=== PATIENT | male | born 1965 | race Caucasian/White ===

== ENCOUNTER 2021-03-29 11:24 | Emergency (ER) | payer OTHER ==
[~2021-03-29] VITALS: Ht 177.8 cm; Wt 101.1 kg
--- NOTE | 2021-03-29 11:38 | PHYS DOC ---
Past History Past Medical History: Hypertension Adult General Chief Complaint Chief Complaint: PARTIAL AMPUTATION/AVULSION HPI HPI Patient is a 55-year-old male presenting for left big toe injury. Onset was just prior to arrival. Patient was starting up lawnmower when his left big toe was struck by the blade. There was complete destruction of the distal tip of toe, patient he was in shock applied immediate pressure and was transported urgently to our facility for evaluation. On arrival, patient complains of acute pain that is focal and nonradiating to left big toe area. Bleeding has been controlled with direct pressure. Tetanus is not up-to-date. Has history of hypertension for which she is on medication daily, no blood thinners. Reports having intact motor or sensory neuro function of left lower extremity. Review of Systems Review of Systems Fourteen body systems of review of systems have been reviewed. See HPI for pertinent positives and negative responses, other sainz all other systems are negative, non-pertinent or non-contributory Current Medications Current Medications Current Medications Medications (Trade) Dose Ordered Sig/Donato Start Time Stop Time Status Last Admin Dose Admin Cefazolin Sodium 2 gm/Dextrose 50 ml @ 100 mls/hr 1X ONCE 03/29/21 11:45 03/29/21 12:14 UNV Hydromorphone HCl (Dilaudid) 1 mg 1X ONCE 03/29/21 11:45 03/29/21 11:46 UNV Allergies Allergies Allergies Coded Allergies Type Severity Reaction Last Updated Verified Penicillins Allergy Unknown 03/29/21 Yes Physical Exam Physical Exam Constitutional: Well-developed age-appropriate male presenting in acute distress due to pain and obvious left lower extremity deformity HENT: Normocephalic, atraumatic, bilateral external ears normal, oropharynx moist, no oral exudates, nose normal. Eyes: PERRLA, EOMI, conjunctiva normal, no discharge. Neck: Normal range of motion, no tenderness, supple, no stridor. Cardiovascular: Heart rate regular, sinus rhythm, no murmurs rubs or gallops Lungs & Thorax: Bilateral breath sounds clear to auscultation Abdomen: Bowel sounds normal, soft, no tenderness, no masses, no pulsatile masses. Nonsurgical abdomen, no peritoneal signs Skin: Warm, dry, no erythema, no rash. Back: No tenderness, no CVA tenderness. Extremities: No clubbing or edema, there is obvious visible and palpable deformity with absent left big toe consistent with recent amputation from lawnmower blade. Patient has adjacent small 7 mm laceration present on left second digit medial surface, able to freely wiggle toes and foot without issues, compartments of left lower extremity soft, no other noteworthy abnormalities on physical exam Neurologic: Alert and oriented X 3, normal motor & sensory function, no focal d eficits noted. 2+ TP and DP pulses of left lower extremity, cap refill less than 5 seconds and second digit otherwise all remaining digits refill less than 3 seconds Psychologic: Anxious affect and mood Current Patient Data Vital Signs Vital Signs Date Time Temp Pulse Resp B/P (MAP) Pulse Ox O2 Delivery O2 Flow Rate FiO2 03/29/21 11:49 99.0 98 20 201/104 (136) 98 Room Air Vital Signs Date Time Temp Pulse Resp B/P (MAP) Pulse Ox O2 Delivery O2 Flow Rate FiO2 03/29/21 12:23 16 03/29/21 12:22 77 188/124 (145) 98 Room Air 03/29/21 11:49 99.0 Lab Results Laboratory Tests Test 03/29/21 11:44 White Blood Count 6.4 x10^3/uL Red Blood Count 4.88 x10^6/uL Hemoglobin 15.2 g/dL Hematocrit 44.6 % Mean Corpuscular Volume 91 fL Mean Corpuscular Hemoglobin 31 pg Mean Corpuscular Hemoglobin Concent 34 g/dL Red Cell Distribution Width 12.9 % Platelet Count 164 x10^3/uL Neutrophils (%) (Auto) 50 % Lymphocytes (%) (Auto) 39 % Monocytes (%) (Auto) 9 % Eosinophils (%) (Auto) 2 % Basophils (%) (Auto) 0 % Neutrophils # (Auto) 3.2 x10^3uL Lymphocytes # (Auto) 2.5 x10^3/uL Monocytes # (Auto) 0.6 x10^3/uL Eosinophils # (Auto) 0.1 x10^3/uL Basophils # (Auto) 0.0 x10^3/uL Sodium Level 141 mmol/L Potassium Level 3.7 mmol/L Chloride Level 102 mmol/L Carbon Dioxide Level 27 mmol/L Anion Gap 12 Blood Urea Nitrogen 7 mg/dL Creatinine 0.9 mg/dL Estimated GFR (Cockcroft-Gault) 87.9 BUN/Creatinine Ratio 8 Glucose Level 114 mg/dL Calcium Level 9.2 mg/dL Total Bilirubin 0.6 mg/dL Aspartate Amino Transf (AST/SGOT) 33 U/L Alanine Aminotransferase (ALT/SGPT) 72 U/L Alkaline Phosphatase 106 U/L Total Protein 7.9 g/dL Albumin 4.3 g/dL Albumin/Globulin Ratio 1.2 Current Medications Medications (Trade) Dose Ordered Sig/Donato Route PRN Reason Start Time Stop Time Status Last Admin Dose Admin Hydromorphone HCl (Dilaudid) 1 mg 1X ONCE IVP 03/29/21 11:45 03/29/21 11:46 DC 03/29/21 12:00 Cefazolin Sodium 2 gm/Dextrose 50 ml @ 100 mls/hr 1X ONCE IV 03/29/21 11:45 03/29/21 12:14 DC Cefazolin Sodium (Ancef) 1 gm STK-MED ONCE .ROUTE 03/29/21 12:00 03/29/21 12:01 DC Dextrose 0 ml @ As Directed STK-MED ONCE .ROUTE 03/29/21 12:01 03/29/21 12:01 DC Vancomycin HCl 2 gm/Sodium Chloride 500 ml @ 250 mls/hr 1X ONCE IV 03/29/21 12:30 03/29/21 14:29 03/29/21 12:15 Piperacillin Sod/ Tazobactam Sod 3.375 gm/Sodium Chloride 50 ml @ 100 mls/hr 1X ONCE IV 03/29/21 12:15 03/29/21 12:44 03/29/21 12:12 Diphtheria/ Pertussis/Tetanus Vacc (ADACEL TDap SYRINGE) 0.5 ml ONCE ONCE VAX IM 03/29/21 12:15 03/29/21 12:16 DC 03/29/21 12:17 Sodium Chloride 50 ml @ As Directed STK-MED ONCE .ROUTE 03/29/21 12:09 03/29/21 12:09 DC Sodium Chloride 500 ml @ As Directed STK-MED ONCE .ROUTE 03/29/21 12:09 03/29/21 12:09 DC Piperacillin Sod/ Tazobactam Sod (Zosyn) 3.375 gm STK-MED ONCE IV 03/29/21 12:09 03/29/21 12:09 DC Vancomycin HCl (Vancomycin) 1 gm STK-MED ONCE .ROUTE 03/29/21 12:09 03/29/21 12:10 DC Ondansetron HCl (Zofran) 4 mg STK-MED ONCE .ROUTE 03/29/21 12:10 03/29/21 12:10 DC Hydromorphone HCl (Dilaudid) 2 mg 1X ONCE IVP 03/29/21 12:30 03/29/21 12:31 UNV 03/29/21 12:23 Ondansetron HCl (Zofran) 4 mg 1X ONCE IVP 03/29/21 12:30 03/29/21 12:31 UNV 03/29/21 12:22 EKG EKG EKG ordered and interpreted by myself at 1152 hrs. as sinus rhythm at 96 bpm, QTC 491 otherwise unremarkable intervals, left axis deviation, right bundle branch block present, no other ischemic findings, no STEMI Radiology/Procedures Radiology/Procedures XR FOOT_LEFT 3 VIEWS History: Trauma Comparison: None. Technique: 3 views of the left foot. Findings: Decreased osseous mineralization. Postsurgical changes from amputation of the great toe across the proximal phalanx. Irregular lucency at the lateral distal cortex of the amputated first toe proximal phalanx. Skin defect at the medial forefoot with adjacent lucency and irregularity at the distal diaphysis of the first metatarsal. Transverse fracture lucency second toe distal phalangeal head. Degenerative changes at the tibiotalar joint. Plantar calcaneal enthesophyte. Atherosclerotic calcifications. Impression: 1. Skin defect and erosive changes at the medial distal first metatarsal concerning for osteomyelitis. 2. Transverse lucency second toe distal phalanx concerning for nondisplaced fracture. 3. Irregular lucency distal portion of the great toe residual proximal phalanx which may represent postsurgical change and remodeling versus erosion from persistent osteomyelitis. Electronically signed by: Gerson Day MD (03/29/2021 12:16 PM) [id number] Heart Score C/O Chest Pain: No HEART Score for Chest Pain: HEART Score for Chest Pain Response (Comments) Value History Slighlty/Non-Suspicious 0 ECG Normal 0 Age >45 - < 65 1 Risk Factors 1 or 2 Risk Factors 1 Total 2 Risk Factors: Risk Factors: DM, Current or recent (<one month) smoker, HTN, HLP, family history of CAD, obesity. Risk Scores: Risk Factors: DM, Current or recent (<one month) smoker, HTN, HLP, family history of CAD, obesity. Course & Med Decision Making Course & Med Decision Making Airway patent, breathing unlabored, IV access and vitals obtained concerning for hypertension only HPI, physical exam and comprehensive ER work-up obtained concerning for traumatic amputation of left big toe Hemostasis achieved. Pain controlled. Tetanus updated and IV antibiotics, Vanco and Zosyn administered I contacted system software programmer at [facility] and reviewed case, he agreed need for transfer for OR debridement, washout and repair I contacted hospitalist at [facility] and reviewed case, he agreed need for hospital transfer for admission under his care I updated patient and daughter at bedside, I disclosed all ER findings and proposed plan of care that includes hospital transfer for surgical intervention, they were both amenable. Last p.o. intake was yesterday evening. Patient to remain n.p.o. All questions and concerns addressed prior to hospital transfer Dragon Disclaimer Dragon Disclaimer This electronic medical record was generated, in whole or in part, using a voice recognition dictation system. Departure Departure: Impression: Primary Impression: Left great toe amputee Disposition: 02 [facility] TERM [facility] ([facility]) Admitting Physician: Other (dr burrell) Condition: STABLE Referrals: BARBARA VALVERDE MD (PCP) JAREN QUINTANILLA DO Mar 29, 2021 11:38
[2021-03-29] MEDS ORDERED: ceFAZolin SODIUM 2 GM in IV DEXTROSE 5% 50 ML IV ONE (11:45)
[2021-03-29] MEDS ORDERED: HYDROmorphone PF 1 MG/ML DISP.SYRIN IVP ONE ×2 (11:45→12:30)
[2021-03-29] MEDS ORDERED: ceFAZolin SODIUM 1 GM VIAL ONE (12:00)
[2021-03-29] MEDS ORDERED: IV DEXTROSE 5% 0 ML ONE (12:01)
[2021-03-29 12:04] LABS: BASO % 0 % (0-3); EOS # 0.1 x10^3/uL (0.0-0.7); EOS % 2 % (0-3); HEMATOCRIT 44.6 % (39.0-53.0); HEMOGLOBIN 15.2 g/dL (13.0-17.5); LYMPH # 2.5 x10^3/uL (1.0-4.8); LYMPH % 39 % (24-48); MEAN CORPUSCULAR HEMOGLOBIN 31 pg (25-35); MEAN CORPUSCULAR HGB CONC 34 g/dL (31-37); MEAN CORPUSCULAR VOLUME 91 fL (79-100); MONO # 0.6 x10^3/uL (0.0-1.1); MONO % 9 % (0-9); NEUT # 3.2 x10^3uL (1.8-7.7); NEUT % 50 % (31-73); PLATELET COUNT 164 x10^3/uL (140-400); RED BLOOD COUNT 4.88 x10^6/uL (4.30-5.70); RED CELL DISTRIBUTION WIDTH 12.9 % (11.5-14.5); WHITE BLOOD COUNT 6.4 x10^3/uL (4.0-11.0)
[2021-03-29 12:06] LABS: CALCIUM 9.2 mg/dL (8.5-10.1); CREATININE 0.9 mg/dL (0.7-1.3); GFR 87.9; POTASSIUM 3.7 mmol/L (3.5-5.1)
[2021-03-29] MEDS ORDERED: PIPERACILLIN/TAZOBACTAM 3.375 GM VIAL IV ONE (12:09)
[2021-03-29] MEDS ORDERED: VANCOMYCIN 1 GM VIAL. ONE (12:09)
[2021-03-29] MEDS ORDERED: IV NORMAL SALINE 50ML 50 ML ONE (12:09)
[2021-03-29] MEDS ORDERED: IV NORMAL SALINE 500ML 500 ML ONE (12:09)
[2021-03-29] MEDS ORDERED: ONDANSETRON PF 4 MG/2 ML VIAL. ONE (12:10)
[2021-03-29 12:11] LABS: ALBUMIN 4.3 g/dL (3.4-5.0); ALBUMIN/GLOBULIN RATIO 1.2 (1.0-1.7); TOTAL BILIRUBIN 0.6 mg/dL (0.2-1.0); TOTAL PROTEIN 7.9 g/dL (6.4-8.2)
[2021-03-29] MEDS ORDERED: PIPERACILLIN/TAZOBACTAM 3.375 GM in IV NORMAL SALINE 50ML 50 ML IV ONE (12:15)
[2021-03-29] MEDS ORDERED: DIPH,PERTUSS(ACELL),TET VAC/PF 0.5 ML SYRINGE. VAX IM ONE (12:15)
--- NOTE | 2021-03-29 12:18 | RAD ---
XR FOOT_LEFT 3 VIEWS History: Trauma Comparison: None. Technique: 3 views of the left foot. Findings: Decreased osseous mineralization. Postsurgical changes from amputation of the great toe across the pr oximal phalanx. Irregular lucency at the lateral distal cortex of the amputated first toe proximal ph alanx. Skin defect at the medial forefoot with adjacent lucency and irregularity at the distal diaphy sis of the first metatarsal. Transverse fracture lucency second toe distal phalangeal head. Degenerat kings changes at the tibiotalar joint. Plantar calcaneal enthesophyte. Atherosclerotic calcifications. Impression: 1. Skin defect and erosive changes at the medial distal first metatarsal concerning for osteomyeliti s. 2. Transverse lucency second toe distal phalanx concerning for nondisplaced fracture. 3. Irregular lucency distal portion of the great toe residual proximal phalanx which may represent p ostsurgical change and remodeling versus erosion from persistent osteomyelitis. Electronically signed by: Gerson Day MD (03/29/2021 12:16 PM) [id number]
--- NOTE | 2021-03-29 12:18 | EKG ---
[address] [address] Test Date: 2021-03-29 Test Time: 11:47:01 Pat Name: KAYLA MART Department: Room: Gender: M Manager Configuration: NIRAV : [id number] Requested By: JAREN QUINTANILLA Order Number: [id number] Reading MD: Measurements Intervals [place] Rate: 96 P: 90 IA: 170 QRS: -19 QRSD: 138 T: 8 QT: 388 QTc: 491 Interpretive Statements SINUS RHYTHM LEFTWARD AXIS RIGHT BUNDLE BRANCH BLOCK ABNORMAL ECG RI6.02 No previous ECG available for comparison
[2021-03-29] MEDS ORDERED: ONDANSETRON PF 4 MG/2 ML VIAL. IVP ONE (12:30)
[2021-03-29] MEDS ORDERED: VANCOMYCIN 2 GM in IV NORMAL SALINE 500ML 500 ML IV ONE (12:30)
--- NOTE | 2021-03-29 12:57 | PDOC2 ---
CONSULT DOS: DATE: 03/29/21 TIME: 12:40 Reason for Consult: Left first ray open fracture from a lawnmower injury Referring Physician: Chief Complaint Left foot pain Problem List Problems Medical Problems: (1) Left great toe amputee Status: Acute History of Present Illness Patient presented with an open left hallux fracture from a lawnmower injury this morning. The left hallux was caught between the blades with shoes. Subsequent ER management consisted of IV Ancef, and Zosyn and vancomycin, Tdap. Physical exam remarked adequate digital stump/flap perfusion without symptoms of compartment syndrome. Light touch sensation was intact. Left foot x-ray remarked traumatic amputation of the distal hallux with cortical interruption to the medial surface of the first metatarsal head as well. Bedside saline washout was performed. The left lower extremity was bandaged with a soft compression dressing. Patient was then transferred from [facility] to [facility] in preparation for surgical I&D. Patient last ate last night patient was kept n.p.o. At bedside, patient relates upwards to []/10 throbbing and sharp pain radiating from the hallux to the midfoot medially. Patient denies any constitutional symptoms, calf pain, or symptoms of hypotension. Patient understands the extent of injury and then the indication need for surgical incision and drainage this afternoon. Current Medications Current Medications Hydromorphone HCl (Dilaudid) 1 mg 1X ONCE IVP Last administered on 03/29/21at 12:00; Start 03/29/21 at 11:45; Stop 03/29/21 at 11:46; Status DC Cefazolin Sodium 2 gm/Dextrose 50 ml @ 100 mls/hr 1X ONCE IV ; Start 03/29/21 at 11:45; Stop 03/29/21 at 12:14; Status DC Cefazolin Sodium (Ancef) 1 gm STK-MED ONCE .ROUTE ; Start 03/29/21 at 12:00; Stop 03/29/21 at 12:01; Status DC Dextrose 0 ml @ As Directed STK-MED ONCE .ROUTE ; Start 03/29/21 at 12:01; Stop 03/29/21 at 12:01; Status DC Vancomycin HCl 2 gm/Sodium Chloride 500 ml @ 250 mls/hr 1X ONCE IV Last administered on 03/29/21at 12:15; Start 03/29/21 at 12:30; Stop 03/29/21 at 14:29 Piperacillin Sod/ Tazobactam Sod 3.375 gm/Sodium Chloride 50 ml @ 100 mls/hr 1X ONCE IV Last administered on 03/29/21at 12:12; Start 03/29/21 at 12:15; Stop 03/29/21 at 12:44 Diphtheria/ Pertussis/Tetanus Vacc (ADACEL TDap SYRINGE) 0.5 ml ONCE ONCE VAX IM Last administered on 03/29/21at 12:17; Start 03/29/21 at 12:15; Stop 03/29/21 at 12:16; Status DC Sodium Chloride 50 ml @ As Directed STK-MED ONCE .ROUTE ; Start 03/29/21 at 12:09; Stop 03/29/21 at 12:09; Status DC Sodium Chloride 500 ml @ As Directed STK-MED ONCE .ROUTE ; Start 03/29/21 at 12:09; Stop 03/29/21 at 12:09; Status DC Piperacillin Sod/ Tazobactam Sod (Zosyn) 3.375 gm STK-MED ONCE IV ; Start 03/29/21 at 12:09; Stop 03/29/21 at 12:09; Status DC Vancomycin HCl (Vancomycin) 1 gm STK-MED ONCE .ROUTE ; Start 03/29/21 at 12:09; Stop 03/29/21 at 12:10; Status DC Ondansetron HCl (Zofran) 4 mg STK-MED ONCE .ROUTE ; Start 03/29/21 at 12:10; Stop 03/29/21 at 12:10; Status DC Hydromorphone HCl (Dilaudid) 2 mg 1X ONCE IVP Last administered on 03/29/21at 12:23; Start 03/29/21 at 12:30; Stop 03/29/21 at 12:31; Status UNV Ondansetron HCl (Zofran) 4 mg 1X ONCE IVP Last administered on 03/29/21at 12:22; Start 03/29/21 at 12:30; Stop 03/29/21 at 12:31; Status UNV Allergies: Coded Allergies: Penicillins (Verified Allergy, Unknown, 03/29/21) Review of System CONSTITUTIONAL: No fever. No chills. No dizziness. No weakness. CARDIOVASCULAR: No chest pain. No palpitations. No lower extremity edema. RESPIRATORY: No shortness of breath, cough, pain with respiration. No hemoptysis. No dyspnea. GASTROINTESTINAL: Normal appetite. No nausea, vomiting, diarrhea. GENITOURINARY: No frequency, urgency, nocturia. No hematuria or dysuria. MUSCULOSKELETAL: Refer to HPI INTEGUMENTARY: Refer to HPI NEUROLOGIC: No numbness or tingling of the extremities. No weakness. PSYCHIATRIC: No confusion. ENDOCRINE: No fatigue. No weakness. HEMATOLOGICAL: No bleeding. No petechiae. No bruising. ALLERGIES: No asthma. No urticaria Physical Exam General: AO x 3 without acute distress. Lower extremity exam: Left ankle/foot VASC: - Pedal pulse (DP/PT) palpable -adequately perfused dorsal and plantar skin flaps around the first ray -minimal to no necrotic/cyanotic changes to the skin flap margins NEURO: - Gross sensation intact via light touch to the level of the proximal first metatarsal shaft DERM: -Open fracture to the distal hallux,>1 centimeter. okay soft tissue coverage to the hallux stump - exposed tendon flexor tendon distally through the laceration site - no first MTPJ cartilage exposure -No proximal streaking, fluctuance or discharge noted across the open fracture site MUSC: - [+] TTP to the first MTPJ and distal hallux stump -Able to move digits 2 through 5 -No paint to palpation to the metatarsals 1 through 5 except for the medial first metatarsal head -Negative Lisfranc stress test -Able to move ankle joint without any deficit or crepitus -Muscle strength 5 out of 5 across ankle joint except for distal hallux IPJ and MTPJ range of motion which was guarded, deferred at this time VITALS Vital Signs Date Time Temp Pulse Resp B/P (MAP) Pulse Ox O2 Delivery O2 Flow Rate FiO2 03/29/21 12:23 16 03/29/21 12:22 77 188/124 (145) 98 Room Air 03/29/21 11:49 99.0 Labs Laboratory Tests Test 03/29/21 11:44 White Blood Count 6.4 x10^3/uL (4.0-11.0) Red Blood Count 4.88 x10^6/uL (4.30-5.70) Hemoglobin 15.2 g/dL (13.0-17.5) Hematocrit 44.6 % (39.0-53.0) Mean Corpuscular Volume 91 fL (79-100) Mean Corpuscular Hemoglobin 31 pg (25-35) Mean Corpuscular Hemoglobin Concent 34 g/dL (31-37) Red Cell Distribution Width 12.9 % (11.5-14.5) Platelet Count 164 x10^3/uL (140-400) Neutrophils (%) (Auto) 50 % (31-73) Lymphocytes (%) (Auto) 39 % (24-48) Monocytes (%) (Auto) 9 % (0-9) Eosinophils (%) (Auto) 2 % (0-3) Basophils (%) (Auto) 0 % (0-3) Neutrophils # (Auto) 3.2 x10^3uL (1.8-7.7) Lymphocytes # (Auto) 2.5 x10^3/uL (1.0-4.8) Monocytes # (Auto) 0.6 x10^3/uL (0.0-1.1) Eosinophils # (Auto) 0.1 x10^3/uL (0.0-0.7) Basophils # (Auto) 0.0 x10^3/uL (0.0-0.2) Sodium Level 141 mmol/L (136-145) Potassium Level 3.7 mmol/L (3.5-5.1) Chloride Level 102 mmol/L (98-107) Carbon Dioxide Level 27 mmol/L (21-32) Anion Gap 12 (6-14) Blood Urea Nitrogen 7 mg/dL (8-26) Creatinine 0.9 mg/dL (0.7-1.3) Estimated GFR (Cockcroft-Gault) 87.9 BUN/Creatinine Ratio 8 (6-20) Glucose Level 114 mg/dL (70-99) Calcium Level 9.2 mg/dL (8.5-10.1) Total Bilirubin 0.6 mg/dL (0.2-1.0) Aspartate Amino Transf (AST/SGOT) 33 U/L (15-37) Alanine Aminotransferase (ALT/SGPT) 72 U/L (16-63) Alkaline Phosphatase 106 U/L (46-116) Total Protein 7.9 g/dL (6.4-8.2) Albumin 4.3 g/dL (3.4-5.0) Albumin/Globulin Ratio 1.2 (1.0-1.7) Assessment/Plan G-A open fracture of IIIB of the left distal first ray -Explained clinical findings and indication/need for surgical intervention including I&D, delayed closure possible antibiotic beads placement, wound VAC therapy. Per literature review, open fracture type III bears upwards to 40% rate of infection. Timely IV antibiotics within 3 hours is effective in reducing the postoperative and soft tissue complications. Given the context of injury, Pseudomonas, anaerobes need covered in addition to gram-positive. The surgical site will be left open or partially closed and will be staged in a couple of days for possible definitive closure pending intraoperative finding, clinical progression. Patient verbalized understanding and consented for the procedure. The primary goal today is to reduce bioburden and prevent infection, excise nonviable tissue. A secondary goal during the second stage is salvage the first ray and close the wound. If the soft tissue flap does not allow adequate wound closure, partial first ray amputation is a possibility. -Strict nonweightbearing to the left lower extremity -Elevate left foot with toes above the nose 45 minutes/h -Every 4 to 6-hour neurovascular exam to the digits 2 through 5 and hallux stump -Patient will benefit from in-house PT/OT -Pain management with Tylenol, gabapentin, Winthrop as needed -Rec ID consult -Continue with scheduled Zosyn [penicillin allergy? ] And vancomycin IV pending intraoperative culture and sensitivity -DVT prophylaxis per internal medicine -Remain n.p.o. -Surgical I&D this afternoon on the left lower extremity Informed Consent Discussion: I have discussed the purpose, risks, benefits, and alternatives to the procedure and plan of care including potential side effects and complications, both of which may be severe and require additional surgery and/or procedures to treat t his with the patient/guardian(s). We discussed the risks and benefits of alternative treatment options and the likelihood of achieving the desired outcome with surgery. Procedure specific discussion is documented below. The risks, benefits and alternatives of the proposed surgery were discussed with the patient, including the option of further non-operative treatment. The possibility of perioperative complications leading to disability and were explained. Patient understands the risks of surgery include but are not limited to failure of the procedure, delayed or non-healing wound, bleeding, infection, venous thrombus/embolus, nerve, vessel, tendon and bone damage, the complications of anesthesia, reaction to sutures or other implanted material, stiffness, chronic pain/swelling, malunion/nonunion, the need for other operations and future revision surgery. No guarantees were given or implied. The patient's questions were answered in depth and patient is willing to proceed. CHAD MARCUS Nagi Mar 29, 2021 12:57
[2021-03-29 13:23] VITALS: BP 172/99
== END 2021-03-29 13:23 | disposition short-term general hospital (02) ==
LOC: ER 11:24
DX: S98.112A Complete traumatic amputation of left great toe, initial encounter (principal); I10 Essential (primary) hypertension; Z20.822 Contact with and (suspected) exposure to COVID-19; Z88.0 Allergy status to penicillin; W28.XXXA Contact with powered lawn mower, initial encounter; Y93.89 Activity, other specified; Y92.89 Other specified places as the place of occurrence of the external cause; Y99.8 Other external cause status
CPT/HCPCS: 73630; 80053; 85025; 87426; 90471; 90715; 93005; 96365; 96368; 96375; 96376; 99285; C9803; J1170; J2405; J2543; J3370; J7040; U0003

== ENCOUNTER → 2021-07-12 | Outpatient (CLI) | payer OTHER ==
--- NOTE | 2021-07-12 18:22 | RAD ---
Left foot 3 views: Reason for examination: Amputation in March with swelling off-and-on. Comparison is made to previous study dated 03/29/2021. There has been amputation of the first digit from the head of the first metatarsal bone distally. The re are no acute erosive changes are seen in the left foot. There continues to be lucency transversely across the distal phalanx of the second toe may reflect a nonunion fracture. No abnormal periosteal reaction is seen. Remaining joint spaces appear to be fairly well-maintained. 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 No acute bony abnormalities evident. Electronically signed by: Brinda Ny MD (07/12/2021 6:19 PM) [id number]
== END ==
LOC: RAD 08:04
PROVIDERS: ATTEND Podiatrist
DX: S98.119 Complete traumatic amputation of unspecified great toe (principal); M79.672 Pain in left foot; X58.XXXD Exposure to other specified factors, subsequent encounter
CPT/HCPCS: 73630